=== PATIENT | female | born 1985 | race African-American/Black ===

== ENCOUNTER 2020-10-28 08:42 | Inpatient (IN) ==
[2020-10-28] MEDS ORDERED: FAMOTIDINE 20 MG/2 ML VIAL IV ONE (09:28)
[2020-10-28] MEDS ORDERED: CITRIC ACID/SODIUM CITRATE 30 ML UDCUP PO ONE (09:28)
[2020-10-28] MEDS ORDERED: ceFAZolin 2,000 MG in PREMIX 1 EACH IV ONE (09:28)
[2020-10-28] MEDS ORDERED: LACTATED RINGERS 1,000 ML IV SCH (09:30)
[2020-10-28] MEDS ORDERED: OXYTOCIN/LR 20 UNIT/1,000 ML BAG IV ONE ×3 (09:30→11:04)
[2020-10-28] MEDS ORDERED: LABETALOL 200 MG TABLET PO ONE (09:47)
[2020-10-28] MEDS ORDERED: fentaNYL 100 MCG/2 ML VIAL ONE (09:49)
[2020-10-28] MEDS ORDERED: MORPHINE 10 MG/10 ML VIAL ONE (09:49)
[2020-10-28 09:52] LABS: Basophils % 0.3 % (0.0-0.8); Eosinophils % 0.1 % (0.00-10.9); Hematocrit 38.9 VOL% (35.7-47.0); Hemoglobin 12.2 GM/DL (12.0-16.0); Immature Granulocytes % 0.4 %; Immature Granulocytes Absolute 0.05 #; Lymphocytes % 17.9 % (21.3-54.2); Mean Corpuscular HGB Conc 31.4 GM/DL (32-36); Neutrophils % 75.3 % (38.7-73.9); Platelet Count 236 T/CUMM (130-400); Red Blood Count 5.56 MC/CUMM (3.8-5.5); Red Cell Distribution Width 15.6 % (9.3-17.3); White Blood Count 11.2 T/CUMM (4-12)
[2020-10-28] MEDS ORDERED: TRANEXAMIC ACID 1,000 MG/10 ML VIAL ONE (09:55)
[2020-10-28] MEDS ORDERED: miSOPROStoL 200 MCG TABLET ONE (09:55)
[2020-10-28] MEDS ORDERED: METHYLERGONOVINE 0.2 MG/1 ML AMP ONE (09:55)
[2020-10-28] MEDS ORDERED: CARBOPROST TROMETHAMINE 250 MCG/ML AMP IM ONE (09:56)
[2020-10-28] MEDS ORDERED: LACTATED RINGERS 1,000 ML IV ONE (10:10)
[2020-10-28] MEDS ORDERED: PHENYLEPHRINE 1 MG/10 ML SYRINGE IV ONE ×2 (10:10→10:48)
[2020-10-28] MEDS ORDERED: ONDANSETRON 4 MG/2 ML VIAL ONE (10:18)
[2020-10-28] MEDS ORDERED: DEXAMETHASONE 4 MG/1 ML VIAL ONE (10:18)
[2020-10-28 10:19] LABS: Alanine Aminotransferase 25 U/L (13-56); Albumin 2.7 G/DL (3.4-5.0); Alkaline Phosphatase 196 U/L (45-117); Aspartate Amino Transferase 21 U/L (0-37); Bilirubin,Total < 0.39 MG/DL (0.2-1.0); Blood Urea Nitrogen 8 MG/DL (7-18); Calcium 9.3 MG/DL (8.5-10.1); Carbon Dioxide 20 MMOL/L (21-32); Estimated Glom Filtration Rate 141 ML/MIN; Glucose 96 MG/DL (74-106); Osmolality,Calculated 274.5 MOS/KG (273-304); Potassium 3.8 MMOL/L (3.5-5.1); Sodium 139 MMOL/L (136-145); Total Protein 7.5 G/DL (6.4-8.3)
[2020-10-28 10:33] LABS: Cord Arterial Blood HCO3 23.5 MMOL/L
[2020-10-28] MEDS ORDERED: ACETAMINOPHEN 1,000 MG/100 ML VIAL IV ONE (10:37)
[2020-10-28 10:38] LABS: Cord Venous Blood HCO3 16.7 MMOL/L; Cord Venous Blood PO2 15.6
[2020-10-28] MEDS ORDERED: BENZOCAINE 20%/MENTHOL 0.5% SPRAY 56 GM CAN TOP PRN (11:04)
[2020-10-28] MEDS ORDERED: LANOLIN 50% CREAM 0.3 OZ TUBE TOP PRN (11:04)
[2020-10-28] MEDS ORDERED: DIPH/TET/ACEL PERT BOOSTER VACCINE 0.5 ML VIAL IM ONE (11:04)
[2020-10-28] MEDS ORDERED: oxyCODONE/ACETAMINOPHEN 5-325 MG TABLET PO PRN (11:04)
[2020-10-28] MEDS ORDERED: ACETAMINOPHEN 325 MG TABLET PO PRN (11:04)
[2020-10-28] MEDS ORDERED: RHO(D) IMMUNE GLOBULIN 300 MCG SYRINGE IM ONE (11:04)
[2020-10-28] MEDS ORDERED: ONDANSETRON 4 MG/2 ML VIAL IV PRN (11:04)
[2020-10-28] MEDS ORDERED: MEASLES/MUMPS/RUBELLA VACCINE 0.5 ML VIAL SUBCUT ONE (11:04)
[2020-10-28] MEDS ORDERED: HYDROCORTISONE 2.5% RECTAL CREAM 30 GM TUBE TOP PRN (11:04)
[2020-10-28] MEDS ORDERED: BISACODYL 10 MG SUPP RECTAL PRN (11:04)
[2020-10-28] MEDS ORDERED: WITCH HAZEL PADS 100/JAR TOP PRN (11:04)
[2020-10-28 11:07] LABS: Bacteria,Urine Occasional /HPF (Few); Bilirubin,Urine Negative (Negative); Blood, Urine Small mg/dL (Negative); Glucose,Urine (UA) Negative (Negative); Ketones,Urine 80 mg/dL (Negative); Mucus,Urine Many /LPF (Occasional); Nitrite,Urine Negative (Negative); Protein,Urine 100 MG/DL; RBC,Urine 2 /HPF (0-4); Squamous Epithelial Cell,Urine Occasional /HPF (0-10); Urine Appearance Slightly Hazy (Clear); Urine Color Amber (Yellow); Urine Specific Gravity 1.023 (1.001-1.035); Urine Urobilinogen < 2.0 EU/DL (0.2-1.0); WBC,Urine 3 /HPF (0-6)
[2020-10-28] MEDS: diphenhydrAMINE 50 MG/1 ML VIAL IV PRN (16:57)
[2020-10-28] MEDS: ceFAZolin 1,000 MG in SYRINGE 1 EACH IV SCH (17:43)
[2020-10-28 18:06] LABS: HIV Antigen/Antibody Result Nonreactive (Nonreactive); Hepatitis B Surface Ag Quant < 0.10 Index; Hepatitis B Surface Ag Result Negative (Negative)
[2020-10-28] MEDS: LABETALOL 200 MG TABLET PO SCH (20:27)
[2020-10-28] MEDS: DOCUSATE SODIUM 100 MG CAPSULE PO SCH (20:27)
[2020-10-29] MEDS: diphenhydrAMINE 50 MG/1 ML VIAL IV PRN (00:05)
[2020-10-29] MEDS: ceFAZolin 1,000 MG in SYRINGE 1 EACH IV SCH (02:12)
[2020-10-29] MEDS: oxyCODONE/ACETAMINOPHEN 5-325 MG TABLET PO PRN ×2 (02:25→15:56)
[2020-10-29 04:32] LABS: Basophils % 0.2 % (0.0-0.8); Hematocrit 31.1 VOL% (35.7-47.0); Immature Granulocytes % 0.5 %; Immature Granulocytes Absolute 0.06 #; Lymphocytes % 16.2 % (21.3-54.2); Mean Corpuscular HGB Conc 32.2 GM/DL (32-36); Mean Corpuscular Volume 68.8 FL (87-102); Mean Platelet Volume 11.5 FL (9.6-12.0); Monocytes % 6.3 % (1.7-12.7); Neutrophils % 76.8 % (38.7-73.9); Platelet Count 191 T/CUMM (130-400); Red Blood Count 4.52 MC/CUMM (3.8-5.5); Red Cell Distribution Width 15.1 % (9.3-17.3); White Blood Count 12.6 T/CUMM (4-12)
[2020-10-29] MEDS: IBUPROFEN 800 MG TABLET PO PRN ×2 (06:21→20:21)
[2020-10-29] MEDS: LABETALOL 200 MG TABLET PO SCH ×2 (10:15→20:22)
[2020-10-29] MEDS: DOCUSATE SODIUM 100 MG CAPSULE PO SCH ×2 (10:15→20:22)
[2020-10-29] MEDS: MAGNESIUM HYDROXIDE SUSP 30 ML UDCUP PO PRN (20:22)
[2020-10-29] MEDS: SIMETHICONE CHEW 80 MG TABLET PO PRN (20:22)
[2020-10-30] MEDS: oxyCODONE/ACETAMINOPHEN 5-325 MG TABLET PO PRN ×2 (02:53→17:18)
[2020-10-30] MEDS: IBUPROFEN 800 MG TABLET PO PRN ×2 (06:48→17:17)
[2020-10-30] MEDS: LABETALOL 200 MG TABLET PO SCH (08:28)
[2020-10-30] MEDS: SIMETHICONE CHEW 80 MG TABLET PO PRN (08:28)
[2020-10-30] MEDS: MAGNESIUM HYDROXIDE SUSP 30 ML UDCUP PO PRN (08:28)
[2020-10-30] MEDS: DOCUSATE SODIUM 100 MG CAPSULE PO SCH (08:28)
[2020-10-30 15:45] VITALS: BP 142/92
== END 2020-10-30 18:05 | disposition home or self-care (01) | DRG 540 ==
LOC: N.LDOUT 08:42 → N.LD 08:45 → N.OB 13:45
PROVIDERS: ADMIT Specialist; ATTEND Specialist
PROC: LDCSECT (ICD-10-PCS; 2020-10-28 09:40)